=== PATIENT | male | born 2000 | race Caucasian/White ===

== ENCOUNTER → 2022-02-17 18:05 | Outpatient (CLI) | payer BC, SELFPAY ==
--- NOTE | ~2022-02-17 | MR_ITS ---
EXAMINATION: MR lumbar spine wo con EXAM DATE: 02/17/2022 18:35 INDICATION: M54.31 - Sciatica, right side. TECHNIQUE: Multi-sequential, multiplanar MR images of the lumbar spine were obtained without contrast . Sagittal T1, T2, T2 fat saturation images. Axial T2 weighted images. There is no prior study for comparison. FINDINGS: There is 5 mm retrolisthesis L5 on S1 with mild to moderate loss of this disc height. The v ertebral bodies are otherwise aligned. The vertebral body and disc heights are otherwise well maintai declan. The conus medullaris terminates at the L1/2 level and has normal signal intensity and morpholog y. There are no suspicious marrow signal abnormalities. Paraspinal soft tissue is unremarkable. Level by level evaluation: T12-L1: Disc does not extend beyond the endplate margin. Facet arthropathy: Mild. Neural foraminal stenosis: No stenosis. Central canal stenosis: No stenosis. L1-L2: Disc does not extend beyond the endplate margin. Facet arthropathy: Minimal. Neural foraminal stenosis: No stenosis. Central canal stenosis: No stenosis. L2-L3: Disc does not extend beyond the endplate margin. Facet arthropathy: Minimal. Neural foraminal stenosis: No stenosis. Central canal stenosis: No stenosis. L3-L4: Disc does not extend beyond the endplate margin. Facet arthropathy: Mild. Neural foraminal stenosis: No stenosis. Central canal stenosis: No stenosis. L4-L5: There is a minimal diffuse disc bulge. Facet arthropathy: Mild. Neural foraminal stenosis: No stenosis. Central canal stenosis: No stenosis. L5-S1: There is a mild to moderate diffuse disc bulge with superimposed right central protrusion caus ing mass effect on traversing S1 nerve root in the lateral recess. Facet arthropathy: Mild. Neural foraminal stenosis: No stenosis. Central canal stenosis: Mild. Moderate right lateral recess narrowing. IMPRESSION: 1. L5-S1 grade 1 retrolisthesis, right central protrusion causing some mass effect on traversing S1 nerve root in the lateral recess. 2. Mild lumbar facet arthropathy. Reviewed, dictated and finalized at location B. IMPRESSION: 1. L5-S1 grade 1 retrolisthesis, right central protrusion causing some mass ef fect on traversing S1 nerve root in the lateral recess. 2. Mild lumbar facet arthropathy.
== END ==
PROVIDERS: PCP Family Medicine Adolescent Medicine; Visit Provider Family Medicine Adolescent Medicine
DX: M54.31 Sciatica, right side (principal)
CPT/HCPCS: 72148